=== PATIENT | female | born 1950 | race Caucasian/White ===

== ENCOUNTER 2024-10-18 16:10 | Outpatient (CLI) | payer MEDICARE, OTHER ==
--- NOTE | 2024-10-19 02:42 | RADIOLOGY REPORT ---
CLINICAL INDICATION: LEFT KNEE INJURY TECHNIQUE: DI KNEE LIMITED (AP/LAT) Comparison: None FINDINGS/IMPRESSION: : There is no evidence of acute fracture or dislocation. Moderate medial and [id number] lateral tibiofemoral and patellofemoral compartment narrowing wi th associated osteophytosis. Soft tissues are unremarkable.
== END 2024-10-18 23:59 | disposition home or self-care (01) ==
LOC: RAD 16:10
PROVIDERS: ATTEND Family Medicine
DX: S89.92XA Unspecified injury of left lower leg, initial encounter (principal); M17.12 Unilateral primary osteoarthritis, left knee; X58.XXXA Exposure to other specified factors, initial encounter; Y93.9 Activity, unspecified; Y92.89 Other specified places as the place of occurrence of the external cause; Y99.8 Other external cause status
CPT/HCPCS: 73560

== ENCOUNTER 2024-11-05 14:08 | Outpatient (CLI) | payer MEDICARE, OTHER ==
--- NOTE | 2024-11-05 16:32 | VASCULAR REPORT ---
Bilateral lower extremity venous duplex Clinical History: Pain Comparison: None Technique: Duplex Doppler evaluation of the deep venous systems of both lower extremities from the common femora l veins to the popliteal veins including color Doppler and spectral/pulsed waveform analysis was perf ormed. Findings: RIGHT SIDE: The common femoral vein demonstrates appropriate compressibility and waveform variability. There is compressibility/patency of the great saphenous vein at the proximal thigh. The femoral vein demonstrates appropriate compressibility and waveform variability. The deep femoral vein demonstrates appropriate compressibility and waveform variability. The popliteal vein demonstrates nonocclusive thrombus. There is normal compressibility at the tibioperoneal trunk. LEFT SIDE: The common femoral vein demonstrates appropriate compressibility and waveform variability. There is compressibility/patency of the great saphenous vein at the proximal thigh. The femoral vein demonstrates appropriate compressibility and waveform variability. The deep femoral vein demonstrates appropriate compressibility and waveform variability. The popliteal vein demonstrates appropriate compressibility and waveform variability. There is normal compressibility at the tibioperoneal trunk. Impression: No acute right or left femoropopliteal venous thrombosis. 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
== END 2024-11-05 23:59 | disposition home or self-care (01) ==
LOC: VAS 14:08
PROVIDERS: ATTEND Family Medicine
DX: I82.531 Chronic embolism and thrombosis of right popliteal vein (principal); Z03.89 Encounter for observation for other suspected diseases and conditions ruled out
CPT/HCPCS: 93970

== ENCOUNTER 2024-11-25 13:49 | Outpatient (CLI) | payer MEDICARE, OTHER ==
--- NOTE | 2024-11-25 15:01 | RADIOLOGY REPORT ---
EXAM: MR MRI LOWER EXTREMITY LEFT knee INDICATION: UNSPECIFIED INTERNAL DERANGEMENT OF LEFT KNEE TECHNIQUE: Multiplanar and multisequence MR imaging of the left ankle was performed in the absence of gadolinium contrast. COMPARISON: VASC VL VENOUS on DOS: 11/05/24, DI KNEE LIMITED (AP/LAT) on DOS: 10/18/24 FINDINGS: There is a degenerative tear involving body of the medial meniscus. There is thinning of the hyaline cartilage surfaces in the overlying medial femoral condyle underlying medial tibial plateau. The late ral meniscus is intact Cruciate ligaments intact Thickening and increased signal in the deep fibers of the medial collateral ligament probably due to partial tear or sprain Lateral collateral ligament intact The quadriceps and patellar tendons are intact. There is a joint effusion present There is thinning of the hyaline cartilage surfaces along medial patellofemoral joint Small oliver's cyst in the soft tissues posterior to the medial knee joint IMPRESSION: 1. 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 Sprain of the deep fibers of the medial collateral ligament 3. Joint effusion 4. Grade 3 chondromalacia patella
== END 2024-11-25 23:59 | disposition home or self-care (01) ==
LOC: MRI 13:49
PROVIDERS: ATTEND Family Medicine
DX: S83.412A Sprain of medial collateral ligament of left knee, initial encounter (principal); S83.242A Other tear of medial meniscus, current injury, left knee, initial encounter; M23.92 Unspecified internal derangement of left knee; M25.462 Effusion, left knee; M22.42 Chondromalacia patellae, left knee; M71.22 Synovial cyst of popliteal space [Baker], left knee; M25.862 Other specified joint disorders, left knee; X58.XXXA Exposure to other specified factors, initial encounter; Y93.89 Activity, other specified; Y92.89 Other specified places as the place of occurrence of the external cause; Y99.8 Other external cause status
CPT/HCPCS: 73721